=== PATIENT | female | born 1960 | race Caucasian/White ===

== ENCOUNTER → 2021-03-16 22:19 | Outpatient (CLI) | payer MEDICAID | END | disposition home or self-care (01) | LOC: D.LABREF 22:19 | PROVIDERS: ATTEND Internal Medicine Pulmonary Disease | DX: Z11.52 Encounter for screening for COVID-19 (principal) ==

== ENCOUNTER → 2021-03-18 10:42 | Outpatient (CLI) | payer MEDICAID | END | disposition home or self-care (01) | LOC: D.RT 11-25 08:00 → D.LAB 11-25 08:00 | PROVIDERS: ATTEND Internal Medicine Pulmonary Disease | DX: Z11.52 Encounter for screening for COVID-19 (principal); J44.9 Chronic obstructive pulmonary disease, unspecified ==